=== PATIENT | male | born 1965 | race Caucasian/White ===

== ENCOUNTER 2016-09-07 20:21 | Inpatient (IN) | payer OTHER ==
--- NOTE | ~2016-09-07 | DS ---
Discharge Summary [facility] [address] [place]. [address] NAME: TORRES BRADY : 63 STATUS : ADM IN PAT#: [id number] AGE: 50 ADM/REG DATE : 09/07/16 MR#: [id number] REPORT SERV DATE: 09/09/16 DICTATED BY: MARVIN CUTLER DATE: 09/09/16 REPORT STATUS : Draft TRANSCRIBED BY: MODL DATE: 09/09/16 ADMISSION DATE: 09/07/2016 DISCHARGE DATE: 09/09/2016 DISCHARGE DIAGNOSES: 1. Hypertensive urgency, now resolved. 2. Confusion and dysarthria, now resolved. 3. Anxiety disorder. 4. Chronic obstructive pulmonary disease. CONSULTANTS DURING THIS HOSPITALIZATION: None. IMAGING DONE DURING THIS HOSPITALIZATION: MRI and MRA of the brain and neck, which were fairly unremarkable may be one focus of mild chronic ischemic change was noted. BRIEF HISTORY OF PRESENT ILLNESS: The patient is a 50-year-old male presented with dysarthria, confusion, left arm pain, so he was admitted. For detailed history and physical exam, please see note dictated by Dr. Lex Bueno on 09/07/2016. HOSPITAL COURSE: After being admitted to the hospital, this patient was monitored. Serial neuro checks were done. MRI and MRA of the brain were done which reported as noted as above. This patient's blood pressure initially was treated with Catapres patch and it significantly dropped when I saw the patient in followup. I decided to discontinue his Catapres and place him on hydralazine 25 mg twice daily. I also noticed that this patient has been taking Voltaren, so we have recommended that Voltaren will be discontinued, and this plays a significant role in elevation of his blood pressure. Today, this patient blood pressure is well managed. He is symptom free. He feels well. He is tolerating a diet and says he is ready to go home. DISCHARGE DISPOSITION: Home. DISCHARGE ACTIVITY: As tolerated. DISCHARGE DIET: Low-sodium diet. DISCHARGE MEDICATIONS: Aspirin 325 mg once daily, Inderal 40 mg twice daily, Seroquel 100 mg once at bedtime, Klonopin 0.5 mg once at bedtime, Tylenol 1300 mg daily p.r.n., albuterol two puffs daily p.r.n., and hydralazine 25 mg p.o. twice daily. DISCHARGE FOLLOWUP: With the patient's primary care physician or at the [facility]. More than 30 minutes spent planning this patient's discharge, reconciling medications, writing prescriptions, discussing hospital care, and followup with the patient and documenting this discharge. Discharge Summary [place] [place] [id number] [place] [address] NAME: TORRES BRADY : 63 STATUS : ADM IN [facility]#: [id number] AGE: 50 ADM/REG DATE : 09/07/16 MR#: [id number] REPORT SERV DATE: 09/09/16 DICTATED BY: MARVIN CUTLER DATE: 09/09/16 REPORT STATUS : Draft TRANSCRIBED BY: OLIVA DATE: 09/09/16 DICTATED BY: Darshan Morrow/OLIVA Marvin Cutler M.D. / [id number] CC: Marvin Cutler M.D. NO PCP
--- NOTE | ~2016-09-07 | HP ---
History And Physical [address] [place]. [address] NAME: TORRES BRADY : 63 STATUS : ADM Suman PAT#: [id number] AGE: 50 ADM/REG DATE : 09/07/16 MR#: [id number] REPORT SERV DATE: 09/07/16 DICTATED BY: JYOTI CHOUDHURY DATE: 09/07/16 REPORT STATUS : Draft TRANSCRIBED BY: MODL DATE: 09/07/16 DATE OF ADMISSION: 09/07/2016 CHIEF COMPLAINT: A 50-year-old male presenting with uncontrolled blood pressure and symptoms of dysarthria, blurry vision, and confusion. HISTORY OF PRESENTING ILLNESS: The patient's history was obtained through careful interview with the patient, coupled with review of [facility] medical records. The patient, for about two nights, has had a primary complaint of arm pain, weakness, and lightheadedness. He describes dizziness, lightheadedness. No vertigo and then he has began to have weakness and pain in his arms. His arm pain is continuous, diffuse, from the shoulders down to the forearms; cramping, throbbing quality pain up to a 10/10 severity at times. He has had a "mild" headache, slight lower back pain, but not too severe. No chest pain. No abdominal pain. He has had nausea, but no vomiting. He has had a slight cough this last week productive of yellowish sputum with dyspnea on exertion that is also mild. He has noticed an unsteady gait, some slight confusion, dysarthria, blurry vision but no double vision. No hemiparesis. REVIEW OF SYSTEMS: Otherwise, a 14-point review of systems was obtained and was negative. PAST MEDICAL HISTORY: 1. Hypertension. 2. Anxiety, depression, and panic attacks. 3. Coronary artery disease, status post stent placement under the care Dr. Barry. 4. COPD. 5. Pneumonia. PAST SURGICAL HISTORY: Skin cancer removed from the face. ALLERGIES: NO KNOWN DRUG ALLERGIES. SOCIAL HISTORY: The patient smokes cigarettes. He used to chew tobacco. He drinks beer, but has not had a drink in about a week. He lives in [place], [place], with his brother. He is single. Has no children. Unemployed. FAMILY HISTORY: Heart disease and stroke. History And Physical [address] [place]. [address] NAME: TORRES BRADY : 63 STATUS : ADM Suman PAT#: [id number] AGE: 50 ADM/REG DATE : 09/07/16 MR#: [id number] REPORT SERV DATE: 09/07/16 DICTATED BY: JYOTI CHOUDHURY DATE: 09/07/16 REPORT STATUS : Draft TRANSCRIBED BY: OLIVA DATE: 09/07/16 CURRENT MEDICATIONS: Include Tylenol, albuterol, aspirin 325 mg p.o. daily, Klonopin 0.5 mg p.o. q.h.s., diclofenac 75 mg p.o. b.i.d., propranolol 40 mg p.o. b.i.d., Seroquel 200 mg p.o. q.h.s. PHYSICAL EXAMINATION: VITAL SIGNS: Temperature 98.6; pulse 82; blood pressure 206/126, repeat 190/140; respiratory rate 24; O2 saturation 97% on room air. GENERAL: A pleasant, cooperative male, in no evidence of acute distress at this time. NEUROLOGICAL: Cranial nerves 2 through 12 are intact and symmetrical. The patient has 5/5 strength in upper and lower extremities that is symmetrical. HEENT: Pupils equal, round, and reactive to light. No conjunctival pallor. No scleral icterus. Nares are patent. Oropharynx is clear of obstruction. Moist mucous membranes. NECK: Trachea midline. No thyromegaly. LYMPH: No cervical lymphadenopathy. No supraclavicular lymphadenopathy. RESPIRATORY: Clear to auscultation at bases. Minimal expiratory wheeze at the apex of each lung. No labored respiratory effort though. CARDIOVASCULAR: Regular rate and rhythm. No murmurs, rubs, or gallops. No extremity edema is appreciated. ABDOMEN: Soft, nontender, nondistended. Normal bowel sounds auscultated throughout. No hepatosplenomegaly. DERMATOLOGICAL: Warm and dry extremities. No pallor. No cyanosis. PSYCHIATRIC: Anxious affect and mood. Alert and oriented x3. LABORATORY DATA: White blood cell count 8.5, hemoglobin 14, hematocrit 39, platelets 400. Sodium 138, potassium 4.2, chloride 102, bicarb 32, BUN 9, creatinine 0.85, glucose 107. Troponin negative. Lipase 490. Alcohol level negative. INR 1.0. Lactic acid 0.6. Ammonia level 29. Liver enzymes within normal limits. Urinalysis negative for infection. STUDIES: 1. Chest x-ray by my own evaluation shows no acute cardiopulmonary process. 2. EKG by my own evaluation shows sinus rhythm. There is a significantly enlarged right atrial sign with hypertrophy. This is new compared to EKG in 2007, but this is the only abnormality that I can identify. 3. CT scan of the brain without contrast shows no acute intracranial process. ASSESSMENT AND PLAN: 1. Hypertensive urgency. Place on clonidine patch. P.r.n. medications. 2. Gait disturbance with confusion, dysarthria, and blurry vision. Negative neurological exam though. Question whether this is from hypertensive urgency alone? Continue aspirin. I would like to begin screening with an MRI of the brain and an MRA of the neck and obtain neuro checks q.2 hours throughout the night. 3. Anxiety. P.r.n. medications. 4. Chronic obstructive pulmonary disease. Place on Duo nebulizers. History And Physical [address] [address] NAME: TORRES BRADY : 63 STATUS : ADM Suman PAT#: [id number] AGE: 50 ADM/REG DATE : 09/07/16 MR#: [id number] REPORT SERV DATE: 09/07/16 DICTATED BY: JYOTI CHOUDHURY DATE: 09/07/16 REPORT STATUS : Draft TRANSCRIBED BY: OLIVA DATE: 09/07/16 WALI/OLIVA Jyoti Choudhury M.D. / [id number] CC: Darshan Miller M.D.
[2016-09-07 19:59] LABS: BASOPHILS 0.4 %; BASOPHILS ABSOLUTE 0.03 10/3/uL (0.0-0.16); EOSINOPHILS 0.9 %; EOSINOPHILS ABSOLUTE 0.08 10/3/uL (0.0-0.53); HEMATOCRIT 39.3 % (40.0-51.0); HEMOGLOBIN 13.8 g/dL (13.6-17.8); IMMATURE GRANULOCYTES 0.2 %; IMMATURE GRANULOCYTES ABSOLUTE 0.02 10/3/uL (0.0-0.11); LYMPHOCYTES 29.2 %; LYMPHOCYTES ABSOLUTE 2.48 10/3/uL (0.67-4.30); MANUAL DIFF NO %; MEAN CORPUS HGB CONC 35.1 g/dL (32.0-36.0); MEAN CORPUSCULAR HEMOGLOB 31.9 pg (26.0-34.0); MEAN CORPUSCULAR VOLUME 90.8 fL (80-100); MONOCYTES 9.9 %; MONOCYTES ABSOLUTE 0.84 10/3/uL (0.21-1.20); NEUTROPHILS 59.4 %; NEUTROPHILS ABSOLUTE 5.05 10/3/uL (2.02-8.40); PLATELET COUNT 400 10/3/uL (150-400); RBC DISTRIBUTION WIDTH 12.9 % (12.0-16.0); RED CELL COUNT 4.33 10/6/uL (4.7-6.1); WHITE BLOOD CELLS 8.5 10/3/uL (4.5-10.5)
[2016-09-07 20:05] LABS: PARTIAL THROMBO TIME 26.8 SEC (22.5-37.2); PROTIME (NOT ORD) 13.3 SEC (12.0-14.5)
[2016-09-07 20:14] LABS: ALBUMIN 3.9 G/DL (3.5-5.0); ALKALINE PHOSPHATASE 86 U/L (45-117); BUN (BLOOD UREA NITROGEN) 9 MG/DL (6-23); CALCIUM, SERUM 9.5 MG/DL (8.5-10.4); CHEST PAIN PROFILE TAT 0 Hrs 19 Mins; CHLORIDE, SERUM 102 MMOL/L (96-112); CO2 (CARBON DIOXIDE) 32 MMOL/L (24-34); CREATININE 0.85 MG/DL (0.70-1.30); GFR AFRICAN AMERICAN 117 ML/MIN (>=60); GFR NON AFRICAN AMERICAN 101 ML/MIN (>=60); GLUCOSE, SERUM 107 MG/DL (60-99); SALICYLATE 3.9 MG/DL (-); SGPT(ALT) 21 U/L (5-65); SODIUM, SERUM 138 MMOL/L (135-148); TOTAL BILIRUBIN 0.6 MG/DL (0-1.2); TOTAL PROTEIN 7.5 G/DL (6.0-8.5); TROPONIN I <0.02 NG/ML (<0.05)
[2016-09-07 20:15] LABS: DIRECT BILIRUBIN < 0.1 MG/DL (0.0-0.4); INDIRECT BILIRUBIN(NOT ORDER) 0.5 MG/DL (0.1-0.9); POTASSIUM, SERUM 4.2 MMOL/L (3.5-5.3); SGOT(AST) 25 U/L (5-40)
[2016-09-07 20:16] LABS: ACETAMINOPHEN LEVEL (TYLENOL) < 2.0 MCG/ML (10.0-20.0); ALCOHOL < 10 MG/DL (0); CPK 121 U/L (0-200)
[2016-09-07 20:58] LABS: WBC (NOT ORDERED) (RFLEX) 0 (0-5)
[2016-09-07 21:04] LABS: ASCORBIC ACID (UR NOT ORDER) NEG (NEG); BILIRUBIN, URINE NEGATIVE (NEG); KETONE, URINE 20 MG/DL (NEG); LEUKOCYTE ESTERASE(NOT OR NEG (NEG); NITRITE (URINE) NEG (NEG)
[2016-09-07 21:17] LABS: AMPHETAMINES (NOT ORD) NEG (NEG); BARBITURATES (NOT ORDERED NEG (NEG); BENZODIAZEPINES (NOT ORD) NEG (NEG); CANNABINOIDS (THC) NEG (NEG); COCAINE (NOT ORDERED) NEG (NEG); OPIATES NEG (NEG); PHENCYCLIDINE(PCP) NEG (NEG); TRICYCLICS POS (NEG)
[2016-09-07] MEDS ORDERED: SEROQUEL1C PO (22:22)
[2016-09-07] MEDS ORDERED: I40 PO (22:22)
[2016-09-07] MEDS ORDERED: VOLT75 PO (22:22)
[2016-09-07] MEDS ORDERED: KLONO5 PO (22:23)
[2016-09-07] MEDS ORDERED: ASA5GR PO (22:24)
[2016-09-07] MEDS ORDERED: 8 HOUR650 MG PO (22:24)
[2016-09-07] MEDS ORDERED: VENTOLIN HFA INH (22:25)
[2016-09-08 04:23] LABS: BASOPHILS 0.4 %; BASOPHILS ABSOLUTE 0.03 10/3/uL (0.0-0.16); EOSINOPHILS ABSOLUTE 0.07 10/3/uL (0.0-0.53); HEMATOCRIT 38.3 % (40.0-51.0); HEMOGLOBIN 13.2 g/dL (13.6-17.8); LYMPHOCYTES 35.9 %; LYMPHOCYTES ABSOLUTE 2.63 10/3/uL (0.67-4.30); MEAN CORPUS HGB CONC 34.5 g/dL (32.0-36.0); MEAN CORPUSCULAR HEMOGLOB 31.3 pg (26.0-34.0); MEAN CORPUSCULAR VOLUME 90.8 fL (80-100); MEAN PLATELET VOLUME 10.1 fL (9.2-13.0); MONOCYTES 10.6 %; MONOCYTES ABSOLUTE 0.78 10/3/uL (0.21-1.20); NEUTROPHILS 52.1 %; NEUTROPHILS ABSOLUTE 3.82 10/3/uL (2.02-8.40); PLATELET COUNT 356 10/3/uL (150-400); RBC DISTRIBUTION WIDTH 13.2 % (12.0-16.0); RED CELL COUNT 4.22 10/6/uL (4.7-6.1); WHITE BLOOD CELLS 7.3 10/3/uL (4.5-10.5)
[2016-09-08 04:24] LABS: MANUAL DIFF NO %
[2016-09-08 04:31] LABS: INTERNATIONAL NORMAL RATI 1.1 UNITS (-); PROTIME (NOT ORD) 14.2 SEC (12.0-14.5)
[2016-09-08 04:32] LABS: PARTIAL THROMBO TIME 30.7 SEC (22.5-37.2)
[2016-09-08 04:44] LABS: A/G RATIO 1.2 (0.7-1.9); ALBUMIN 3.7 G/DL (3.5-5.0); ALKALINE PHOSPHATASE 81 U/L (45-117); BUN (BLOOD UREA NITROGEN) 10 MG/DL (6-23); CALCIUM, SERUM 9.5 MG/DL (8.5-10.4); CHLORIDE, SERUM 104 MMOL/L (96-112); CHOL/HDL RATIO(NOT ORDER) 4.7 (0-5); CHOLESTEROL 165 MG/DL (< 200); CO2 (CARBON DIOXIDE) 25 MMOL/L (24-34); CREATININE 0.67 MG/DL (0.70-1.30); GFR AFRICAN AMERICAN 129 ML/MIN (>=60); GFR NON AFRICAN AMERICAN 111 ML/MIN (>=60); GLOBULIN 3.2 G/DL (2.5-4.1); GLUCOSE, SERUM 94 MG/DL (60-99); HDL CHOLESTEROL 35 MG/DL (> 39); LDL CHOLESTEROL 110 MG/DL (< 130); NON-HDL CHOLESTEROL 130 MG/DL (< 160); POTASSIUM, SERUM 3.6 MMOL/L (3.5-5.3); SGOT(AST) 18 U/L (5-40); SGPT(ALT) 20 U/L (5-65); SODIUM, SERUM 139 MMOL/L (135-148); TOTAL BILIRUBIN 0.6 MG/DL (0-1.2); TOTAL PROTEIN 6.9 G/DL (6.0-8.5); TRIGLYCERIDE 100 MG/DL (< 150); TROPONIN I <0.02 NG/ML (<0.05)
[2016-09-09 05:57] LABS: ALBUMIN 3.5 G/DL (3.5-5.0); CALCIUM, SERUM 9.4 MG/DL (8.5-10.4); CHLORIDE, SERUM 104 MMOL/L (96-112); CO2 (CARBON DIOXIDE) 24 MMOL/L (24-34); CREATININE 0.84 MG/DL (0.70-1.30); GFR AFRICAN AMERICAN 117 ML/MIN (>=60); GFR NON AFRICAN AMERICAN 101 ML/MIN (>=60); GLUCOSE, SERUM 95 MG/DL (60-99); PHOSPHORUS, SERUM 3.1 MG/DL (2.5-4.5); POTASSIUM, SERUM 4.1 MMOL/L (3.5-5.3); SODIUM, SERUM 136 MMOL/L (135-148)
[2016-09-09 05:59] LABS: BUN (BLOOD UREA NITROGEN) 15 MG/DL (6-23)
[2016-09-09] MEDS ORDERED: APRES25 PO (13:10)
== END 2016-09-09 14:05 | disposition home or self-care (01) | DRG 305 ==
LOC: ER 20:21 → CDU1 22:55 → CDU2 23:13 → 2SO 09-08 14:03
PROVIDERS: Emergency Medicine; Internal Medicine
DX: I16.0 Hypertensive urgency (principal); F32.9 Major depressive disorder, single episode, unspecified; R26.89 Other abnormalities of gait and mobility; J44.9 Chronic obstructive pulmonary disease, unspecified; F41.0 Panic disorder [episodic paroxysmal anxiety]; I25.10 Atherosclerotic heart disease of native coronary artery without angina pectoris; F17.210 Nicotine dependence, cigarettes, uncomplicated; R41.0 Disorientation, unspecified; R47.1 Dysarthria and anarthria; Z95.5 Presence of coronary angioplasty implant and graft; Z85.828 Personal history of other malignant neoplasm of skin; Z82.49 Family history of ischemic heart disease and other diseases of the circulatory system; Z82.3 Family history of stroke
CPT/HCPCS: 70450; 70544; 70548; 70551; 71010; 80048; 80053; 80061; 80069; 80076; 80305; 80307; 81001; 82140; 82550; 83605; 83690; 83735; 83880; 84443; 84484; 85025; 85610; 85730; 93005; 94640; 96374; 99285; A9270-GY; A9577; J0360